=== PATIENT | male | born 1940 | race Asian ===

== ENCOUNTER 2018-02-13 07:59 | Day surgery (SDC) | payer OTHER ==
[2018-02-12 09:18] VITALS: BMI 25.2
[2018-02-13] MEDS ORDERED: HEPARIN NA (PORCINE) 5,000 UNITS/ML 1ML VIAL ONE ×2 (08:47→10:40)
[2018-02-13] MEDS ORDERED: LIDOCAINE HCL 1%, 10 MG/ML (20ML VIAL) ONE (08:47)
[2018-02-13] MEDS ORDERED: MIDAZOLAM HCL 2 MG/2 ML SINGLE DOSE VIAL ONE (09:10)
[2018-02-13] MEDS ORDERED: PROPOFOL 20 ML ONE (09:10)
--- NOTE | 2018-02-13 10:20 | HP ---
Satellite [facility] - Chief Complaint History of Present Illness: 77 year old man with chronic kidney disease. He needs creation of AV access for planned hemodialysis. Right handed. History Source: Patient Limitations to Obtaining History: No Limitations - Past Medical History Allergies/Adverse Reactions: Allergies Allergy/AdvReac Type Severity Reaction Status Date / Time No Known Drug Allergies Allergy Verified 02/13/18 08:34 Cardiovascular: Yes: HTN Endocrine: Yes: Diabetes Mellitus - Current Medications Current Medications: Home Medications Medication Instructions Recorded Amlodipine Besylate [Norvasc -] 5 mg PO DAILY 02/12/18 Calcitriol [Rocaltrol -] 0.25 mcg PO DAILY 02/12/18 Calcium Acetate [Phoslo -] 667 mg PO TID 02/12/18 Docusate Sodium [Colace] 100 mg PO DAILY 02/12/18 Enoxaparin [Lovenox -] 30 mg SQ DAILY 02/12/18 Hydralazine HCl 25 mg PO BID 02/12/18 Insulin (Levemir) [Levemir Vial] 8 unit SQ HS 02/12/18 Labetalol HCl [Normodyne -] 200 mg PO BID 02/12/18 Pantoprazole Sodium [Protonix] 40 mg PO DAILY 02/12/18 Polyethylene Glycol 3350 [Clearlax] 17 gm PO DAILY 02/12/18 Tizanidine HCl 2 mg PO BID 02/12/18 Satellite Physical Exam - Physical Examination Vital Signs: Vital Signs Period Temp Pulse Resp BP Sys/Sanford Pulse Ox Last 24 Hr 98.5 F 68 18 96/55 100 General Appearance: Alert & Oriented x3 ENT: Clear Lung: Clear to auscultation Heart: Regular rate & rhythm Abdomen: Soft Extremities: No edema Satellite Impression/Plan - Impression/Plan Impression: CKD stage 5 Operative Procedure: Creation AV fistula left arm Date to be Performed: 02/13/18
[2018-02-13] MEDS ORDERED: PAPAVERINE HCL 30 MG/1 ML 10 ML VIAL NR ONE (10:40)
[2018-02-13] MEDS ORDERED: LIDOCAINE HCL 1%, 10 MG/ML (20ML VIAL) PNB ONE (10:43)
[2018-02-13] MEDS ORDERED: HEPARIN NA (PORCINE) 5,000 UNITS/ML 1ML VIAL SQ ONE (11:00)
[2018-02-13] MEDS ORDERED: POVIDONE-IODINE OINTMENT 10% - 28.4 GM TUBE ONE (11:07)
[2018-02-13] MEDS ORDERED: POVIDONE-IODINE OINTMENT 10% - 28.4 GM TUBE TP ONE (11:32)
--- NOTE | 2018-02-13 11:36 | OP ---
Operative Note - Note: Operative Date: 02/13/18 Pre-Operative Diagnosis: CKD Operation: Creation AV fistula left arm Findings: Patent cephalic vein and radial artery Post-Operative Diagnosis: Same as Pre-op Surgeon: Lenin Delgado Solar Crew Member: Lita Bowling Anesthesia: Fractional Estimated Blood Loss (mls): 10
[2018-02-13] MEDS ORDERED: ACETAMINOPHEN WITH CODEINE 300MG/30MG TABLET PO PRN (11:38)
--- NOTE | 2018-02-13 11:46 | SURG ---
Surgery Soldering Technician Note Soldering Technician: Lita Bowling PA-C Date of Service: 02/13/18 Diagnosis: CKD Procedure: Creation AV fistula left arm I was present for the entirety of the operative procedure. For further detail, please refer to operative report. Visit type - Case Type Case Type: Scheduled - Emergency Emergency Visit: No - New patient This patient is new to me today: Yes Date on this admission: 02/13/18
[2018-02-13 13:43] VITALS: TEMP 98.2
[2018-02-13 13:50] VITALS: BP 131/68; PULSE 66
[2018-02-13] MEDS ORDERED: ONDANSETRON 4 MG/2 ML VIAL IVPUSH PRN (13:51)
[2018-02-13] MEDS ORDERED: SODIUM CHLORIDE 1,000 ML IV SCH (14:00)
--- NOTE | 2018-02-13 16:35 | OP ---
DATE OF OPERATION: 02/13/2018 SURGEON: Lenin Velazquez MD PIPING DRAFTER: RAVI Bowling PROCEDURE: Creation arteriovenous fistula, left arm. PREOPERATIVE DIAGNOSIS: Chronic kidney disease. POSTOPERATIVE DIAGNOSIS: Chronic kidney disease. ANESTHESIA: Fractional. FINDINGS: The cephalic vein and radial artery proximal to the wrist were patent with adequate diameter for creation of AV fistula. OPERATIVE PROCEDURE: Following routine patient identification with side and site verification, intravenous sedation was established. The left arm was prepped with ChloraPrep. One-percent lidocaine was infiltrated subcutaneously over the cephalic vein and a skin incision made. Cautery was used to obtain hemostasis. The vein was mobilized from its bed. Side branches were ligated with silk ties and divided. The vein was ligated distally and incised. It was distended with heparin and papaverine solution. No. 5 and 8 feeding tubes were passed proximally without resistance, and the vein was filled with heparin solution. Additional xylocaine was infiltrated over the radial pulse at the same level, and the artery was exposed through a small incision. The area was encircled proximally and distally with vesseloops. Side branches were ligated and divided. The vein was then freed and passed through short subcutaneous tunnel to lie next to the artery. The artery was occluded with vesseloops and opened on exposed surface with a 6-mm arteriotomy. The vein was spatulated and anastomosed to the side of the artery with running suture of 6-0 Prolene. Prior to completion of the suture line, the artery was allowed to back bleed and flush, and the vein was flushed with heparin and saline solution. Suture line was completed, and all vessels were released. There was good flow through the anastomosis with a palpable thrill in the vein proximally. Bleeding from the suture line was controlled with surgicel. Hemostasis was achieved. The wounds were closed with interrupted suture of 3-0 Vicryl and skin aurora. Sterile dressings were applied. The patient was taken to the recovery room in stable condition. LENIN VELAZQUEZ M.D. NAKIA/[id number]
== END 2018-02-13 16:02 | disposition home or self-care (01) ==
LOC: JASU-SURG 07:59
PROVIDERS: ATTEND Surgery
PROC: 031C0ZF Bypass Left Radial Artery to Lower Arm Vein, Open Approach (ICD-10-PCS; principal; 2018-02-13 10:00)
DX: I12.0 Hypertensive chronic kidney disease with stage 5 chronic kidney disease or end stage renal disease (principal); N18.6 End stage renal disease; E11.22 Type 2 diabetes mellitus with diabetic chronic kidney disease; Z99.2 Dependence on renal dialysis; Z79.4 Long term (current) use of insulin
CPT/HCPCS: 36415; 82962; 84132; 94760; J1644

== ENCOUNTER 2018-02-28 17:11 | Emergency (ER) | payer OTHER ==
[2018-02-28 17:45] VITALS: TEMP 98.6; BMI 25.1
--- NOTE | 2018-02-28 17:53 | PDOC ---
Attending Attestation - Resident Resident Name: Lorena Yee - HPI HPI: 02/28/18 18:08 Pt presents to the ED complaining of of redness and itching to site of newly placed AV fistula. Fistula was placed on 02/[address] Bailey. Patient was unable to see the site until today because the bandage was removed. Denies fever or discharge from the wound. Patient completed full HD today. - Physicial Exam PE: 02/28/18 18:12 Agree with resident exam. Patient is alert and oriented and in no acute distress. Antonio in place at site of fistula. No discharge. + very mild redness without warmth or tenderness. + palpable thrill. - Medical Decision Making 02/28/18 18:23 Pt presents to the ED complaining of redness and mild itching to the site of AV fistula placement. No signs of infection. Patient has follow up with Dr. Bailey tomorrow at 2 pm. Case discussed with Dr. Bailey who agrees with the plan. Will discharge home.
[2018-02-28] MEDS ORDERED: diphenhydrAMINE HCL 25 MG CAPSULE (FP) PO ONE ×2 (18:03→18:18)
--- NOTE | 2018-02-28 18:11 | PDOC ---
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 He states that he was able to complete his entire dialysis session with problems today but was concerned about the pain and asked to come to the ED. Mr Vail states that he has had pain in the right chest wall port for two months. The pain is unchanged. He is unable to quantify it, stating that it is "between 1 and 10" out of 10. However, he reports that what bothers him more is severe itching at the port site. On further questioning, it appears that he has significant itching but mild pain. He states that the port has been functioning well. Mr Vail reports that he had his LUE AVF placed two weeks ago by Dr Delgado. He had a bandage over the surgical site until yesterday, when it was removed. At that time he noticed that the skin around his incisions is slightly red, and he feels that it looks swollen. He reports that it looks the same today, and he had not seen it prior to the bandage being removed yesterday. It is unknown what the site looked like prior to yesterday. Mr Vail additionally reports itching and some pain around the surgical incision; these have been present for multiple days and have not changed recently. He denies fevers, chills, lightheadedness, chest pain, SOB, nausea/vomiting, or any systemic symptoms. Past History - Past Medical History Allergies/Adverse Reactions: Allergies Allergy/AdvReac Type Severity Reaction Status Date / Time No Known Drug Allergies Allergy Verified 02/13/18 08:34 Home Medications: Ambulatory Orders Calcitriol [Rocaltrol -] 0.25 mcg PO DAILY 02/12/18 Docusate Sodium [Colace] 100 mg PO DAILY 02/12/18 Enoxaparin [Lovenox -] 30 mg SQ ASDIR 02/12/18 Hydralazine HCl 25 mg PO ASDIR 02/12/18 Labetalol HCl [Normodyne -] 200 mg PO BID 02/12/18 Pantoprazole Sodium [Protonix] 40 mg PO DAILY 02/12/18 Polyethylene Glycol 3350 [Clearlax] 17 gm PO DAILY 02/12/18 Tizanidine HCl 2 mg PO BID 02/12/18 Ammonium Lactate Cream [Lac-Hydrin 12% *Cream*] 1 applic TP BID 02/28/18 Calcium Acetate [Phoslo -] 667 mg PO TIDCM 02/28/18 Enoxaparin [Lovenox -] 30 mg SQ Q2D 02/28/18 Insulin Glargine,Hum.rec.anlog [Basaglar Kwikpen U-100] 8 unit SQ HS 02/28/18 Oxycodone HCl/Acetaminophen [Percocet 5-325 mg Tablet] 1 tab PO Q6H 02/28/18 COPD: No CHF: No Diabetes: Yes Disorders: Yes (dyalisis) HTN: Yes - Suicide/Smoking/Psychosocial Hx Smoking History: Never smoked Have you smoked in the past 12 months: No Information on smoking cessation initiated: No Hx Alcohol Use: No Drug/Substance Use Hx: No Substance Use Type: None Hx Substance Use Treatment: No Review of Systems - Review of Systems Comments:: General: No fevers, no chills, no weight or appetite change, no malaise HEENT: No changes in vision, no changes in hearing, no congestion, no sore throat CV: No chest pain, no palpitations, no LE edema Pulm: No SOB, no cough, no wheezing GI: No nausea or vomiting, no change in bowel habits, no melena : ESRD on HD; port functioning well Musc: No back pain, no joint swelling, no recent injury. Recent LUE AVF placement, see HPI Skin: No rash, no lesions Endo: No excessive thirst, no heat/cold intolerance. h/o IDDM Heme: No unusual bruising or bleeding, no swollen glands Neuro: No syncope, no numbness/tingling, no focal weakness Vasc: No claudication Psych: No recent change in mood, no SI or HI *Physical Exam - Vital Signs Last Vital Signs Temp Pulse Resp BP Pulse Ox 98.6 F 78 16 115/66 100 02/28/18 17:15 02/28/18 17:15 02/28/18 17:15 02/28/18 17:15 02/28/18 17:15 - Physical Exam Comments: General: Comfortable, no acute distress HEENT: PERRL, EOMI, MMM, voice normal, normal neck ROM, no LAD Cards: RRR, no murmur appreciated Pulm: Comfortable on room air, clear to auscultation bilaterally Chest wall: Dialysis catheter in place in rt chest wall. No surrounding erythema , edema. No discharge. No purulence or sign of infection. Dressing in place over catheter; some skin irritation c/w contact dermatitis when bandage removed Abd: Soft, nontender, nondistended Ext: No LE edema. ROM intact. Strength 5/5 and equal bilaterally LUE with surgical incision on forearm c/w known AVF placement. [place] in place, incisions c/d/i, appear to be healing well. Fistula with palpable thrill. No edema, No purulence or sign of infection. Patient observed scratching area around incision, some slight erythema c/w local irritation from scratching Neuro: A&Ox3, CN grossly intact, normal speech, motor/sensory grossly intact and symmetric Psych: Mood appropriate to situation Moderate Sedation - Procedure Monitoring Vital Signs: Procedure Monitoring Vital Signs Temperature 98.6 F 02/28/18 17:15 Pulse Rate 78 02/28/18 17:15 Respiratory Rate 16 02/28/18 17:15 Blood Pressure 115/66 02/28/18 17:15 O2 Sat by Pulse Oximetry (%) 100 02/28/18 17:15 Medical Decision Making - Medical Decision Making 02/28/18 18:20 William Vail is a 77yo man with a PMH of IDDM, HTN, ESRD on HD via catheter, recent LUE AVF placement who presents with itching and mild pain around his dialysis catheter and LUE surgical incision. He also was concered about mild erythema and swelling around his surgical incision. - Dialysis catheter and LUE AVF examined; no sign of infection at either site. - Patient observed scratching at both sites. Instructed pt to avoid scratching. 25mg PO benedryl for itching. Appears to have contact dermatitis from dressing over his dialysis catheter. Removed and replaced with different dressing. - Spoke to Dr Delgado via phone. Patient has a post-op appointment scheduled for tomorrow afternoon. No need for additional workup at this time; will be seen tomorrow. OK to discharge back to his SNF. Discharge home. Should go to his already scheduled follow up appointment tomorrow afternoon. Seen and discussed with Dr Waterman. Lorena Yee PGY1 *DC/Admit/Observation/Transfer Diagnosis at time of Disposition: ESRD (end stage renal disease) on dialysis - Discharge Dispostion Disposition: HOME Condition at time of disposition: Stable Decision to Admit order: No - Referrals Referrals: Lenin Delgado MD [Staff Physician] - - Patient Instructions Additional Instructions: Discharge Instructions: You were seen in the emergency departement due to itching and pain at your dialysis catheter and your left arm surgical incision. Your left arm surgical site appears to be healing well. Please avoid scratching the area. You should go to your scheduled follow up appointment tomorrow. The right chest dialysis catheter also does not appear to be infected or otherwise abnormal. There was some irritation noted on your skin underneath the dressing. You may have a reaction to the glue in the bandage. Consider asking at your dialysis center if they have different bandage options available for sensitive skin. If you have continued itching, you may take diphenhydramine (Benedryl) 25-50mg every 6 hours. Please be aware that this medication will likely make you feel sleepy. You may want to follow up with your regular doctor to evaluate the skin reaction to your bandage. Follow up: - Please go to your scheduled postoperative appointment with Dr Delgado. - See your regular doctor within the next week for follow up - Seek immediate medical care if you have chest pain, shortness of breath, or any other medical emergency. - Post Discharge Activity
[2018-02-28 19:08] VITALS: BP 117/70; PULSE 74
== END 2018-02-28 20:19 | disposition home or self-care (01) ==
LOC: JER 17:11
DX: T82.848A Pain due to vascular prosthetic devices, implants and grafts, initial encounter (principal); L25.8 Unspecified contact dermatitis due to other agents; Z95.828 Presence of other vascular implants and grafts; Z99.2 Dependence on renal dialysis; I12.0 Hypertensive chronic kidney disease with stage 5 chronic kidney disease or end stage renal disease; E11.22 Type 2 diabetes mellitus with diabetic chronic kidney disease; N18.6 End stage renal disease; N17.8 Other acute kidney failure; Z79.4 Long term (current) use of insulin
CPT/HCPCS: 99282-25